=== PATIENT | female | born 1970 | race American Indian/Alaskan Native ===

== ENCOUNTER 2016-11-07 09:24 | Emergency (ER) | payer BC ==
[2016-11-07] MEDS ORDERED: XYLOCAINE TOPICAL 2% TP ONE (11:56)
[2016-11-07] MEDS ORDERED: XYLOCAINE TOPICAL 2% ONE ×2 (11:57→12:03)
--- NOTE | 2016-11-07 12:26 | Emergency Department Report ---
ED Lower Extremity HPI - General Chief Complaint: Extremity Injury, Lower Stated Complaint: RT TOE AND FOOT PAIN W/SWELLING Time Seen by Provider: 11/07/16 11:41 Source: patient Mode of arrival: Ambulatory Limitations: No Limitations - History of Present Illness Initial Comments: 46-year-old female past medical history obesity, brain tumor status post resection, hysterectomy presents with 2 days of right fourth toe pain and swelling. Patient complaining of minor amount of redness and swelling near the distal nail edge. Patient denies any blunt trauma no falls denies dropping anything on foot denies hurting her foot at work. She was fully ambulatory only complaining of pain at the distal tip of her right fourth toe. MD Complaint: other (right fourth toe pain) Injury: Toes: Right (fourth toe distal pain and swelling near her nail edge) Severity scale (0 -10): 3 Worsens With: nothing Associated Symptoms: swelling, ambulatory - Related Data Home Medications Medication Instructions Recorded Confirmed Last Taken Naproxen/Esomeprazole Mag [Vimovo 1 PO BID 08/26/13 08/26/[address] 500-20 mg Tablet] Previous Rx's Medication Instructions Recorded Last Taken Type traMADol [Ultram 50 MG tab] 50 mg PO Q6HR PRN #12 tablet 03/01/13 Unknown Rx Diclofenac [Stefano Howard] 75 mg PO Q12H #20 tablet 08/26/13 Unknown Rx Cyclobenzaprine HCl [Flexeril 5mg] 5 mg PO BID #10 tablet 02/10/14 Unknown Rx traMADol [Ultram 50 MG tab] 50 mg PO Q6HR PRN #10 tablet 02/10/14 Unknown Rx Ibuprofen [Motrin 600 MG tab] 600 mg PO Q8H PRN #20 tablet 07/22/14 Unknown Rx traMADol [Ultram 50 MG tab] 50 mg PO Q6HR PRN #14 tablet 07/22/14 Unknown Rx Cephalexin [Keflex] 500 mg PO Q12HR #14 cap 11/07/16 Unknown Rx Naproxen [Naprosyn TAB] 500 mg PO BID PRN #20 tablet 11/07/16 Unknown Rx Sulfamethoxazole/Trimethoprim 1 each PO BID #14 tablet 11/07/16 Unknown Rx [Bactrim DS TAB] Allergies Allergy/AdvReac Type Severity Reaction Status Date / Time codeine Allergy Nausea Verified 03/01/13 06:43 ED Review of Systems ROS: Stated complaint: RT TOE AND FOOT PAIN W/SWELLING Other details as noted in HPI Constitutional: denies: chills, fever Eyes: denies: eye pain, eye discharge, vision change ENT: denies: ear pain, throat pain Respiratory: denies: cough, shortness of breath, wheezing Cardiovascular: denies: chest pain, palpitations Endocrine: no symptoms reported Gastrointestinal: denies: abdominal pain, nausea, diarrhea Genitourinary: denies: urgency, dysuria, discharge Musculoskeletal: denies: back pain, joint swelling, arthralgia Skin: denies: rash, lesions Neurological: denies: headache, weakness, paresthesias Psychiatric: denies: anxiety, depression Hematological/Lymphatic: denies: easy bleeding, easy bruising ED Past Medical Hx - Past Medical History Previous Medical History?: Yes Additional medical history: brain tumor (menigioma); left knee arthritis - Surgical History Past Surgical History?: Yes Additional Surgical History: crainiotomy 11/2011,. hysterectomy 09/2010 - Social History Smoking Status: Never Smoker Substance Use Type: None - Medications Home Medications: Home Medications Medication Instructions Recorded Confirmed Last Taken Type traMADol [Ultram 50 MG tab] 50 mg PO Q6HR PRN #12 tablet 03/01/13 08/26/13 Unknown Rx Diclofenac [Stefano Howard] 75 mg PO Q12H #20 tablet 08/26/13 Unknown Rx Naproxen/Esomeprazole Mag [Vimovo 1 PO BID 08/26/13 08/26/13 Unknown History 500-20 mg Tablet] Cyclobenzaprine HCl [Flexeril 5mg] 5 mg PO BID #10 tablet 02/10/14 Unknown Rx traMADol [Ultram 50 MG tab] 50 mg PO Q6HR PRN #10 tablet 02/10/14 Unknown Rx Ibuprofen [Motrin 600 MG tab] 600 mg PO Q8H PRN #20 tablet 07/22/14 Unknown Rx traMADol [Ultram 50 MG tab] 50 mg PO Q6HR PRN #14 tablet 07/22/14 Unknown Rx Cephalexin [Keflex] 500 mg PO Q12HR #14 cap 11/07/16 Unknown Rx Naproxen [Naprosyn TAB] 500 mg PO BID PRN #20 tablet 11/07/16 Unknown Rx Sulfamethoxazole/Trimethoprim 1 each PO BID #14 tablet 11/07/16 Unknown Rx [Bactrim DS TAB] ED Physical Exam - General Limitations: No Limitations General appearance: alert, in no apparent distress - Head Head exam: Present: atraumatic, normocephalic - Eye Eye exam: Present: normal appearance - ENT ENT exam: Present: mucous membranes moist - Neck Neck exam: Present: normal inspection - Respiratory Respiratory exam: Present: normal lung sounds bilaterally. Absent: respiratory distress - Cardiovascular Cardiovascular Exam: Present: regular rate, normal rhythm. Absent: systolic murmur, diastolic murmur, rubs, gallop - GI/Abdominal GI/Abdominal exam: Present: soft, normal bowel sounds - Extremities Exam Extremities exam: Present: normal inspection - Expanded Lower Extremity Exam Right Hip exam: Present: full ROM Upper Leg exam: Present: normal inspection, full ROM Knee exam: Present: normal inspection, full ROM Lower Leg exam: Present: normal inspection, full ROM Ankle exam: Present: normal inspection, full ROM Foot/Toe exam: Present: tenderness, swelling, erythema (visible paronychia right fourth toe no clinical felon on exam, range of motion tone intact. Tiny palpable abscess at lateral nail edge) 1 - Paronychia here - Back Exam Back exam: Present: normal inspection - Neurological Exam Neurological exam: Present: alert, oriented X3, CN II-XII intact, normal gait - Psychiatric Psychiatric exam: Present: normal affect, normal mood - Skin Skin exam: Present: warm, dry, intact, normal color. Absent: rash ED Course Vital Signs 11/07/16 09:31 Temperature 98.7 F Pulse Rate 80 Blood Pressure 179/92 O2 Sat by Pulse 100 Oximetry - I & D Right Distal Toe Type of Procedure: Simple Site: distal right fourth toe Blade Size: needle aspiration with 18-gauge needle Progress: Tiny amount of pus extracted, procedure tolerated well minimal bleeding patient experienced significant relief pain, Band-Aid placed on top afterward ED Lower Extremity MDM - Medical Decision Making A/P: Right fourth toe paronychia 1-tiny amount of pus aspirated directly from lateral nail edge, patient experienced significant relief after aspiration. No pus visible underneath nail 2-Bactrim, Keflex twice a day 7 days 3-naproxen 500 twice a day 4-follow-up with primary care doctor and podiatry 5- advised patient to return to the ED if symptoms worsen she experiences any fever or chills or if erythema extends beyond the lateral nail edge Critical care attestation.: If time is entered above; I have spent that time in minutes in the direct care of this critically ill patient, excluding procedure time. ED Disposition Clinical Impression: Paronychia of toe of right foot Disposition: DISCHARGED TO HOME OR SELFCARE Is pt being admited?: No Does the pt Need Aspirin: No Condition: Stable Instructions: Paronychia (ED), Incision and Drainage (ED) Prescriptions: Cephalexin [Keflex] 500 mg PO Q12HR #14 cap Naproxen [Naprosyn TAB] 500 mg PO BID PRN #20 tablet PRN Reason: Pain Sulfamethoxazole/Trimethoprim [Bactrim DS TAB] 1 each PO BID #14 tablet Referrals: [facility] [Outside] - 3-5 Days [facility] [Outside] - 3-5 Days ALECIA REILLY DPM [Staff Physician] - 3-5 Days Time of Disposition: 12:34
[2016-11-07] MEDS ORDERED: MOTRIN PO ONE (12:34)
[2016-11-07 12:47] VITALS: BP 144/98
== END 2016-11-07 12:47 | disposition home or self-care (01) ==
LOC: ED 09:24
DX: L03.031 Cellulitis of right toe (principal); M17.12 Unilateral primary osteoarthritis, left knee; Z85.841 Personal history of malignant neoplasm of brain
CPT/HCPCS: 99282